=== PATIENT | male | born 1940 | race Caucasian/White ===

== ENCOUNTER 2022-11-29 11:59 | Emergency (ER) | payer OTHER ==
[~2022-11-29] VITALS: Ht 162.6 cm; Wt 66.7 kg
[2022-11-29 12:00] VITALS: BP_SYST 158
[2022-11-29] MEDS ORDERED: MECLIZINE HCL 25 MG TABLET (ANITVERT) PO ONE (13:00)
[2022-11-29 13:31] LABS: BASOPHILS % (AUTO) 0.4 % (0.0-2.0); EOSINOPHILS # (AUTO) 0.2 K/uL (0.0-0.4); EOSINOPHILS % (AUTO) 3.1 % (0.0-4.0); HEMATOCRIT 42.7 % (36-54); HEMOGLOBIN 14.5 g/dL (14.0-18.0); LYMPHOCYTES # (AUTO) 1.3 K/uL (1.0-5.5); LYMPHOCYTES % (AUTO) 25.3 % (20.5-51.5); MEAN CORPUSCULAR HEMOGLOBIN 34 pg (27-31); MEAN CORPUSCULAR HGB CONC 34 % (32-36); MEAN CORPUSCULAR VOLUME 99 fL (79.0-98.0); MONOCYTES # (AUTO) 0.5 K/uL (0.0-1.0); MONOCYTES % (AUTO) 9.5 % (1.7-9.3); NEUTROPHILS # (AUTO) 3.2 K/uL (1.8-7.7); NEUTROPHILS % (AUTO) 61.7 % (40.0-70.0); PLATELET COUNT (AUTO) 260 K/uL (130-430); RED BLOOD CELL COUNT(AUTO) 4.31 MIL/uL (4.2-6.2); RED CELL DISTRIBUTION WIDTH 13.2 % (9.0-15.0); WHITE BLOOD COUNT (AUTO) 5.2 K/uL (4.8-10.8)
[2022-11-29] MEDS ORDERED: MECL-225 PO (13:47)
[2022-11-29 13:52] LABS: BILIRUBIN,URINE NEGATIVE (NEGATIVE); BLOOD, URINE 1+ (NEGATIVE); COLOR,URINE YELLOW (YELLOW); GLUCOSE,URINE NEGATIVE (NEGATIVE); KETONES,URINE NEGATIVE (NEGATIVE); LEUKOCYTE ESTERASE ,URINE NEGATIVE (NEGATIVE); NITRITE, URINE NEGATIVE (NEGATIVE); PROTEIN URINE NEGATIVE (NEGATIVE); UROBILINOGEN,URINE 0.2 (0.2-1.0)
[2022-11-29 13:54] LABS: CLARITY/URINE SLIGHTLY HAZY (CLEAR)
[2022-11-29 14:03] LABS: ALANINE AMINOTRANSFERASE 40 U/L (12-78); ALBUMIN 3.2 g/dL (3.4-4.8); ANION GAP 8 (5-15); ASPARTATE AMINOTRANSFERASE 30 U/L (10-37); CHLORIDE 102 mmol/L (98-107); CREATININE 0.72 mg/dL (0.55-1.30); GLUCOSE 99 mg/dL (70-99); TOTAL BILIRUBIN 0.5 mg/dL (0.0-1.0); UREA NITROGEN, BLOOD 8 mg/dL (8-21)
[2022-11-29 14:09] LABS: BACTERIA,URINE RARE /HPF (None Seen); RBC,URINE 0-3 /HPF (0-3); WBC,URINE NONE SEEN /HPF (0-3)
[2022-11-29 16:06] VITALS: BP_SYST 132
== END 2022-11-29 16:05 | disposition home or self-care (01) ==
LOC: SED 11:59
DX: R42 Dizziness and giddiness (principal); E11.9 Type 2 diabetes mellitus without complications; Z79.899 Other long term (current) drug therapy
CPT/HCPCS: 99285; 70450; 71045; 80053; 81000; 85025; 84484; 36415; 93005; 76376; J8597